=== PATIENT | female | born 1995 | race Caucasian/White ===

== ENCOUNTER 2023-12-11 02:25 | Emergency (ER) | payer BC, SELFPAY ==
[2023-12-11 02:30] VITALS: BP 140/84
--- NOTE | 2023-12-11 02:46 | ED.GENMED ---
History of Present Illness
General
Chief Complaint: Abdominal Symptoms
Source: patient
Exam Limitations: none
Time Seen by Provider: 12/11/23 02:37
Travel History
Have you had any contact with someone who has COVID-19?: No
Do you have any symptoms of coronavirus? Fever > 100 degrees, chills, cough, shortness of breath, sore throat, loss of taste or smell, muscle aches, or headache?: No
History of Present Illness
History of Present Illness:
See MDM
Past History
Past History
ED Past Medical History: None
ED Past Surgical History: None
Social History
Tobacco: Non-smoker
Alcohol: Occasional
Drug: None
Personal:
Living: with family
Employment: Employed
Family History
Family History: Other (Contributory)
Phy Exam
Physical Exam
Physical Exam:
See MDM
Course
Orders/Labs/Results
Orders:
Orders
12/11/23 02:45
US Abdomen Complete/Upper Urgent
Comment:
Reason For Exam: RUQ pain
12/11/23 02:52
Complete Blood Count/With Diff Urgent
Comprehensive Metabolic Panel Urgent
Lipase Urgent
Abnormal Lab Results
12/11/23
02:52
Chloride 108 H mmol/L
(98-107)
Calcium 10.7 H mg/dl
(8.4-10.2)
12/11/23 02:52
12/11/23 02:52
Vital Signs
Initial and Last Documented VS:
Initial Vital Signs
Temp Pulse Resp BP Pulse Ox
98.2 F 67 16 140/84 98
12/11/23 02:30 12/11/23 02:30 12/11/23 02:30 12/11/23 02:30 12/11/23 02:30
Last Documented Vital Signs
Temp Pulse Resp BP Pulse Ox
98.2 F 67 16 140/84 98
12/11/23 02:30 12/11/23 02:30 12/11/23 02:30 12/11/23 02:30 12/11/23 02:30
MDM/Problems Addressed
Differential Diagnosis Includes:
HPI and MDM Narrative:
28-year-old female presenting with right upper quadrant abdominal pain. Symptoms are worse with food intake. Patient was worried because she developed significant pain earlier tonight but symptoms are improving somewhat. She does have outpatient
ultrasound scheduled to rule out gallbladder pathology. She is 1 month uncomplicated vaginal delivery.
Physical exam
General: Well appearing and non-toxic
HEENT: protecting airway
Neck: appears supple
CV: No evidence of cyanosis
Resp: No accessory muscle use
Abd: Non-distended. Mild right upper quadrant tenderness without rebound
Extremities: No deformities
Neuro: alert
Psych: Normal affect
Skin: Intact
Problems Addressed including Acute and Chronic Conditions affecting care:
1. Right upper quadrant pain
Acuity: acute
Prognosis: stable
Details: given pain with food intake, will obtain gallbladder pathology
Updates
4 AM ultrasound consistent with multiple mobile gallstones. No evidence of acute calculus cholecystitis. Discussed the diagnosis of symptomatic cholelithiasis and follow-up with surgery
Differential Diagnosis (but not limited to): Symptomatic cholelithiasis, acute calculus cholecystitis
Testing considered: CT abdomen/pelvis
Drug therapy (if applicable): OTC meds, please see d/c instruction regarding Rx drugs
Amount and/or Complexity of Data Reviewed
Clinical info obtained from: Patient
External data reviewed: N/A
Labs I independently reviewed (but not limited to): LFTs within normal limit
Radiology: Ultrasound report reviewed
Pulse Ox: not hypoxic
EKG independently reviewed: N/A
Nematologist: N/A
Critical Care: N/A
Risk of Complication:
Social Determinants of health: Good social support
Discussed with other providers: N/A
Escalation of Care includes Admit/Obs: After being observed in the Emergency Department, pt stable for discharge.
Occasional wrong word or 'sound a like' substitutions may have occurred due to the inherent limitations of voice recognition software. Read the chart carefully and recognize, using context, where substitutions have occurred.
*Critical Care Note
Total Time (30-74mins, 75-104mins- exclusive of procedures): Not Applicable
ED Attending Note
-
Portions of this chart may have been created with voice recognition software.� Occasional wrong word or��sound alike� substitutions may have occurred due to the inherent limitations of voice recognition software.
Discharge Plan
Departure
Patient Disposition: Home (Routine Discharge)
Date of Disposition: 12/11/23
Time of Disposition: 04:03
Patient with high blood pressure during this ER visit?: Yes
Discharge Problem:
Symptomatic cholelithiasis
Instructions: Gallstones ED
Prescriptions:
No Action
levothyroxine 100 mcg Tablet
100 mcg PO ARANA
levothyroxine 50 mcg Tablet
50 mcg PO SUMOTUWETHFR
1 mg Tablet
1 tab PO DAILY
magnesium Tablet
1 tab PO DAILY
Vitamin D (with calcium)
4,000 units PO DAILY
Wellbutrin
PO BID
Referrals:
Kelly Rey CRNP [Family Provider] -
Babatunde Ferraro MD [Active] -
Activity Restrictions/Additional Instructions:
Please return for any worsening symptoms.
You may return at any time if you have further concerns.
Please follow up with your doctor at the first available appointment, preferably this week.
Please make an appointment to see the general surgeon.
Thank you for choosing [facility].
Interventions
Interventions:
*Risk Screen - Suicide Last Done: 12/11/23 02:45
*General Assessment Last Done: 12/11/23 02:30
*Neglect/Abuse Screening Last Done: 12/11/23 02:45
ED- Fall Risk Assessment Last Done: 12/11/23 02:45
*ED COVID-19 Vaccine History Last Done: 12/11/23 02:30
CQ-Ukxhbd-Vynueqxsuk Assessment Last Done: 12/11/23 02:45
Discharge Date and Time
Print Language: URDU
[2023-12-11 03:05] LABS: % Basophils 0.8 % (0-2); % Eosinophils 4.2 % (0-6); % Immature Granulocytes 0.3 % (0-0.5); % Lymphocytes 38.2 % (20.5-51.1); % Monocytes 6.7 % (1.7-9.3); % Neutrophils 49.8 % (42.2-75.2); Absolute Basophils 0.1 10^3/uL (0-0.2); Absolute Eosinophils 0.3 10^3/uL (0-0.7); Absolute Monocytes 0.5 10^3/uL (0.1-0.6); Mean Corp Hgb Conc. 35.7 g/dL (33.0-37.0); Mean Corpuscular Hgb 30.7 pg (27.0-31.0); Mean Corpuscular Volume 86.1 fL (81.0-99.0); Mean Platelet Volume 9.6 fL (7.4-10.4); Nucleated Red Blood Cells % 0 %; Platelet Count 183 10^3/uL (130-400); Red Blood Cell Count 4.88 10^6/uL (4.20-5.40); Red Cell Dist. Width 11.7 % (11.5-14.5); White Blood Cell Count 7.9 10^3/uL (4.8-10.8)
[2023-12-11 03:20] LABS: ALT (SGPT) 25 U/L (0-35); AST (SGOT) 24 U/L (14-36); Albumin 4.6 g/dl (3.5-5.0); Alkaline Phosphatase 84 U/L (38-126); Blood Urea Nitrogen 15 mg/dl (7-17); Calcium 10.7 mg/dl (8.4-10.2); Carbon Dioxide 24 mmol/L (22-30); Chloride 108 mmol/L (98-107); Glucose 95 mg/dl (70-99); Lipase 208 U/L (23-300); Potassium 4.1 mmol/L (3.5-5.1); Sodium 141 mmol/L (135-145); Total Bilirubin 0.5 mg/dl (0.2-1.3); Total Protein 7.3 g/dl (6.3-8.2); eGFR > 60.00
[2023-12-11 03:30] VITALS: BP 105/75
== END 2023-12-11 04:15 | disposition home or self-care (01) ==
LOC: EMR 02:25
PROVIDERS: EMERGENCY PHYSICIAN Student in an Organized Health Care Education/Training Program; FAMILY PHYSICIAN Nurse Practitioner Family
DX: K80.20 Calculus of gallbladder without cholecystitis without obstruction (principal); R03.0 Elevated blood-pressure reading, without diagnosis of hypertension
CPT/HCPCS: 99284; 76700; 80053; 83690; 85025

== ENCOUNTER 2024-01-12 06:21 | Day surgery (SDC) | payer BC, SELFPAY ==
[2024-01-12] VITALS (12 sets, daily range): BP systolic 82–125; BP diastolic 49–80; BMI 28.2
[2024-01-12] MEDS: NORMOSOL-R 1000 IV (10:55)
[2024-01-12] MEDS: TYLENOL 1000 MG PO (11:07)
--- NOTE | 2024-01-12 12:36 | W.SUR.PREOP ---
Pre-Operative Surgical Note
-
I have examined this patient prior to the performance of the scheduled procedure.
The patient's condition is unchanged from the time of the current History and
Physical and the patient is able to undergo the scheduled procedure.
--- NOTE | 2024-01-12 12:37 | W.IMMPOSTOP ---
Surgical Immed Post Op Note
-
Primary Surgeon: Joel Menendez MD
Assisting Surgeon: None
Pre-op Diagnosis: Biliary colic
Post-op Diagnosis: Same
Procedure Performed: Laparoscopic cholecystectomy with cholangiogram
Anesthesia Type: General
Specimen / Cultures: Gallbladder and contents
Estimated Blood Loss: 3 cc
Complications: None
Operative Findings: Fairly normal-appearing gallbladder though some adhesions to the infundibulum and duct taken down with electrocautery. A critical view of safety was obtained prior to a cholangiogram which demonstrated no distal filling defects.
2 small cholesterol gallstones were milked out of the cystic duct prior to our successful run. Duct ligated with titanium endoclips.
--- NOTE | 2024-01-12 12:38 | OR.RPT ---
Operative Report
Operative Report
Patient Name: Dai Vitale
: 1995
Date of Operation: 01/12/2024
Preoperative Diagnosis: Symptomatic Cholelithiasis
Postoperative Diagnosis: Same
Procedure(s):
Laparoscopic Cholecystectomy with Cholangiogram
Surgeon(s):
Dr. Menendez
Family Life Educator(s):
None
Anesthesia: General
Estimated Blood Loss: 3 cc
Urine Output: None
Drains/Lines/Implants: None
Specimens:
1. Gallbladder and contents
HPI/Surgical Indications:
This is a 28-year-old female who presents with abdominal pain. Exam, labs and imaging are consistent with symptomatic cholelithiasis. Risks/Benefits/Alternatives were discussed at length, and the patient agreed to proceed with surgery.
Findings:
The patient was noted to have some evidence of gallbladder inflammation noted by periduodenal adhesions to the infundibulum and cystic duct. A Critical View of Safety was obtained. Cholangiogram showed no filling defects in the biliary system with
the Left, Right Anterior, Right posterior hepatic ducts, CHD, cystic duct and CBD all identified. There was brisk flow of dye into the duodenum. 2 small cholesterol gallstones were milked out of the cystic duct prior to our successful run. Duct
ligated with titanium endoclips.
Procedure Description:
The patient was brought to the Operating Room and placed in the supine position. IV antibiotics were infused and sequential compression devices were confirmed to be on. Following uneventful induction of general endotracheal anesthesia, an
orogastric tube was placed. The abdomen was prepped and draped in the usual sterile fashion. The abdomen was entered using an infraumbilical open Shannon technique using a 12 mm trocar . Pneumoperitoneum to 15 mmHg pressure was obtained without
difficulty and we confirmed that no injury had occurred during our entry. The patient was positioned in reverse trendelenberg and rotated with the right side up slightly. Three (3) 5mm trocars were then placed along the right subcostal margin. A
locking grasping forceps was placed on the fundus of the gallbladder where it was then retracted cephalad and to the right. Using appropriate grasping instruments, the peritoneum overlying the triangle of Calot was incised. The cystic
duct/gallbladder junction was identified, dissected circumferentially. The cystic artery was identified medially and was dissected circumferentially. The artery was clipped and divided after a critical view was obtained. A clip was then placed on
the cystic duct/gallbladder junction and an intraoperative cholangiogram performed using fluoroscopy, which showed good flow of dye into the duodenum. Prior to a run, 2 small cholesterol gallstones were milked out of the cystic duct. There were no
intra- or extrahepatic bile duct filling defects. The biliary anatomy appeared normal. Following completion of the cholangiogram, the catheter was removed. Two clips were then placed proximally on the cystic duct and the duct divided. The
remaining soft tissue attachments of the gallbladder to the liver bed were then divided using electrocautery. There was no spillage of bile or stones. The gallbladder bed was inspected and excellent hemostasis was obtained. The gallbladder was
extracted through the 12 mm trocar site using an endocatch bag. The abdomen was again irrigated and excellent hemostasis was assured. All remaining trocars were then removed and the pneumoperitoneum was evacuated. The 12 mm trocar site was closed
using a figure of 8 of 0 PDS. All trocar sites were closed at the skin level using 4-0 Monocryl followed by Dermabond. Overall, the patient tolerated the procedure well and was taken to the Recovery Room postoperatively in stable condition.
I was the attending physician and performed the procedure with no assistance. I was present for all portions of the case
Joel Menendez MD
[2024-01-12] MEDS: SUBLIMAZE 50 MCG IV (13:27)
[2024-01-12] MEDS: MOTRIN 600 MG PO (14:25)
== END 2024-01-12 14:50 | disposition home or self-care (01) ==
LOC: SDS 06:21
PROVIDERS: ATTENDING PHYSICIAN Surgery
DX: K80.10 Calculus of gallbladder with chronic cholecystitis without obstruction (principal)
CPT/HCPCS: 47563; 88304; 74300; 76000

== ENCOUNTER 2024-01-20 13:21 | Emergency (ER) | payer BC, SELFPAY ==
[2024-01-20 13:26] VITALS: BP 153/80
--- NOTE | 2024-01-20 16:23 | ED.GENMED ---
History of Present Illness
General
Chief Complaint: Post Operative Problem(s)
Time Seen by Provider: 01/20/24 16:10
History of Present Illness
History of Present Illness:
Patient is a 28-year-old female presenting to the ED with right upper quadrant pain. She states that she had a gallbladder surgery last week. She has been feeling a constant dull pain in the area pains radiating to the back and across the abdomen.
She reports no fever, no vomiting, no diarrhea, no sick contacts, no urinary frequency or pain. She does report ongoing nausea.
Past History
Past History
ED Past Medical History: None
ED Past Surgical History: None
Social History
Tobacco: Non-smoker
Alcohol: Occasional
Drug: None
Personal:
Living: with family
Employment: Employed
Family History
Family History: Other (Contributory)
Review of Systems
Review of Systems
Constitutional: Reports no symptoms
EENT: Reports no symptoms
Respiratory: Reports no symptoms
Cardiac: Reports no symptoms
ABD/GI: Reports abdominal pain and nausea
: Reports no symptoms
Musculoskeletal: Reports no symptoms
Skin: Reports no symptoms and other (clean surgical incisions without discharge)
Psychiatric: Reports no symptoms
Phy Exam
General Physical Exam
General Presentation: mild distress
General age: appears stated age
General Skin: warm and dry
General Habitus: normal
General Mental: alert
General Hydration: appears well hydrated
Cardiovascular Exam
Cardiovascular Exam: regular rate/rhythm, no edema, no gallop, no JVD, no murmur, normal peripheral pulses, bradycardia and diastolic murmur
Pulmonary Exam
Pulmonary Exam: lungs clear, no respiratory distress, no rales, chest non tender, no crackles, no rhonchi, no stridor, no wheezing and no cough
Gastrointestinal Exam
Gastrointestinal Exam: normal bowel sounds, soft, no pulsatile mass, non distended and tender
Musculoskeletal Exam
Musculoskeletal Exam: full ROM
Skin Exam
Skin Exam: normal color and warm/dry
Psychiatric Exam
Psychiatric Exam: normal mood/affect
Course
Orders/Labs/Results
Orders:
Orders
01/20/24 16:35
Ketorolac [Toradol] 15 mg IV NOW STA
01/20/24 16:39
CT Abd/pelvis W Iv Cont Urgent
Comment:
Reason For Exam: abdominal pain
0.9% Sodium Chloride 1000 ml [Nss] 1,000 ml IV BOLUS
01/20/24 16:52
CMP [Comprehensive Metabolic Panel] Urgent
Complete Blood Count/With Diff Urgent
Lipase Urgent
Comment: ADD ON
01/20/24 20:59
Add On- LAB Urgent
Tests Added?: lipase
Abnormal Lab Results
01/20/24
16:52
Absolute Monos (auto) 0.7 H 10^3/uL
(0.1-0.6)
Calcium 10.8 H mg/dl
(8.4-10.2)
01/20/24 16:52
01/20/24 16:52
Vital Signs
Initial and Last Documented VS:
Initial Vital Signs
Temp Pulse Resp BP Pulse Ox
98.3 F 54 18 153/80 97
01/20/24 13:26 01/20/24 13:26 01/20/24 13:26 01/20/24 13:26 01/20/24 13:26
Last Documented Vital Signs
Temp Pulse Resp BP Pulse Ox
98.2 F 67 18 128/78 98
01/20/24 21:11 01/20/24 21:11 01/20/24 21:11 01/20/24 21:11 01/20/24 21:11
MDM/Problems Addressed
Differential Diagnosis Includes:
bile leak
MDM/Problems Addressed:
Patient is a 28-year-old female presenting to the ED with right upper quadrant pain after cholecystectomy. Patient is stable and was given IV fluids, Toradol in ED. CT abdomen pelvis shows small amount of fluid in the gallbladder area. All other
organs are normal. Patient tolerated food orally. Surgery was consulted and patient was seen in the ED. Recommendations made to follow-up with surgery outpatient.
Chronic conditions affecting care:
NA
Acute Exacerbation and/or Progression of Chronic Illness:
NA
*Critical Care Note
Total Time (30-74mins, 75-104mins- exclusive of procedures): Not Applicable
ED Attending Note
-
Portions of this chart may have been created with voice recognition software.� Occasional wrong word or��sound alike� substitutions may have occurred due to the inherent limitations of voice recognition software.
Discharge Plan
Departure
Patient Disposition: Home (Routine Discharge)
Date of Disposition: 01/20/24
Time of Disposition: 20:59
Patient with high blood pressure during this ER visit?: No
Condition: Good
Discharge Problem:
Post surgical complication
Instructions: Postoperative Pain (DC)
Prescriptions:
No Action
levothyroxine 100 mcg Tablet
100 mcg PO ARANA
levothyroxine 50 mcg Tablet
50 mcg PO MOTUWETHFR
bfmzwjlc-[id number]-FA 1 mg Tablet
1 tab PO DAILY
magnesium Tablet
1 tab PO DAILY
bupropion HCl [Wellbutrin SR] 150 mg Tablet Sustained-Release 12 Hr
150 mg PO BID
cholecalciferol (vitamin D3) [Vitamin D3] 125 mcg (5,000 unit) Tablet
125 mcg PO DAILY
acetaminophen 325 mg tablet
650 mg PO Q6HPRN PRN (Reason: mild pain) Qty: 14 0RF
Patient Comments:
2 week agoper patient.
tramadol 50 mg tablet
25 mg PO Q6HPRN PRN (Reason: severe pain/breakthrough pain) Qty: 8 0RF
ibuprofen 600 mg tablet
600 mg PO Q6H PRN (Reason: pain) Qty: 14 0RF
Patient Comments:
01/07/24
Referrals:
Kelly Rey CRNP [Family Provider] -
Joel Menendez MD [Active] - Call in 1-3 days for appt
Interventions
Interventions:
*Risk Screen - Suicide Last Done: 01/20/24 16:30
*General Assessment Last Done: 01/20/24 16:30
*Neglect/Abuse Screening Last Done: 01/20/24 16:30
ED- Fall Risk Assessment Last Done: 01/20/24 21:11
*ED COVID-19 Vaccine History Last Done: 01/20/24 21:11
*Nursing Disposition Last Done: 01/20/24 21:11
ED-Skin Assessment Last Done: 01/20/24 16:30
Discharge Date and Time
Discharge Date/Time: 01/20/24 21:14
Print Language: [place]LAND[place]
[2024-01-20 16:30] VITALS: BP 124/79
[2024-01-20] MEDS: NSS 1000 IV (16:54)
[2024-01-20] MEDS: TORADOL 15 MG IV (16:55)
[2024-01-20 17:04] LABS: % Basophils 0.6 % (0-2); % Eosinophils 1.6 % (0-6); % Immature Granulocytes 0.4 % (0-0.5); % Lymphocytes 27.9 % (20.5-51.1); % Monocytes 6.8 % (1.7-9.3); % Neutrophils 62.7 % (42.2-75.2); Absolute Basophils 0.1 10^3/uL (0-0.2); Absolute Eosinophils 0.2 10^3/uL (0-0.7); Absolute Lymphocytes 2.9 10^3/uL (1.2-3.4); Absolute Monocytes 0.7 10^3/uL (0.1-0.6); Absolute Neutrophils 6.5 10^3/uL (1.4-6.5); Hematocrit 40.4 % (37.0-47.0); Hemoglobin 14.3 g/dL (12.0-16.0); Mean Corp Hgb Conc. 35.4 g/dL (33.0-37.0); Mean Corpuscular Hgb 30.4 pg (27.0-31.0); Mean Platelet Volume 9.4 fL (7.4-10.4); Nucleated Red Blood Cells % 0 %; Platelet Count 228 10^3/uL (130-400); Red Cell Dist. Width 12.2 % (11.5-14.5); White Blood Cell Count 10.3 10^3/uL (4.8-10.8)
[2024-01-20 17:27] LABS: ALT (SGPT) 34 U/L (0-35); AST (SGOT) 28 U/L (14-36); Alkaline Phosphatase 79 U/L (38-126); Blood Urea Nitrogen 15 mg/dl (7-17); Calcium 10.8 mg/dl (8.4-10.2); Carbon Dioxide 24 mmol/L (22-30); Chloride 105 mmol/L (98-107); Glucose 83 mg/dl (70-99); Potassium 4.2 mmol/L (3.5-5.1); Sodium 140 mmol/L (135-145); Total Bilirubin 0.7 mg/dl (0.2-1.3); eGFR > 60.00
[2024-01-20 18:00] VITALS: BP 121/79
[2024-01-20 21:11] VITALS: BP 128/78
--- NOTE | 2024-01-20 21:26 | CON.GS ---
Consultation
-
Date/Time Consultation Requested: 01/20/2024 8 PM
Date/Time Consultation Performed: 01/20/2024 9 PM
Requesting Provider: Emergency department
Performing Provider: Dr. Menendez
Reason for Consultation: Right upper quadrant pain, shortness of breath
Medical History
-
Chief Complaint: Right upper quadrant pain shortness of breath
History of Present Illness:
This is a 28-year-old female status post laparoscopic cholecystectomy 1 week ago that was uneventful. The cholangiogram performed at the time was also unremarkable. She was discharged home the same day and was doing well up until this past Thursday
when she started having right upper quadrant pain particularly at night and in the morning. It felt like spasming that was severe and the only relenting maneuver was standing up and leaning forward. She also notes some 'shortness of breath' like
she cannot catch her breath but there is no pleuritic chest pain associated with this.
Past Medical History
Past Medical History: Reviewed & Noncontributory
Past Surgical History: Cholecystectomy
Social History
Tobacco: Non-Smoker
Drug: None
Personal:
Living: With Family
Family History
Family History: Reviewed & Not Pertinent
Allergies / Home Medications
Allergy/AdvReac Type Severity Reaction Status Date / Time
apple Allergy Anaphylaxis, Verified 01/20/24 13:27
swelling,
hives,
birch Allergy Anaphylaxis, Verified 01/20/24 13:27
swelling,
hives,
bowens Allergy Anaphylaxis, Verified 01/20/24 13:27
swelling,
hives,
peach Allergy Anaphylaxis, Verified 01/20/24 13:27
swelling,
hives,
pear Allergy Anaphylaxis, Verified 01/20/24 13:27
swelling,
hives,
walnut Allergy Anaphylaxis, Verified 01/20/24 13:27
swelling,
hives,
�Medication �Instructions �Recorded �Confirmed �Type
levothyroxine 100 mcg tablet 100 mcg PO ARANA 12/11/23 01/12/24 History
levothyroxine 50 mcg tablet 50 mcg PO MOTUWETHFR 12/11/23 01/12/24 History
magnesium 1 tab PO DAILY 12/11/23 01/12/24 History
pecdlnce-gsn-Ub-FA 1 mg 1 tab PO DAILY 12/11/23 01/12/24 History
tablet
bupropion HCl 150 mg tablet,12 hr 150 mg PO BID 01/08/24 01/12/24 History
sustained-release (Wellbutrin SR)
cholecalciferol (vitamin D3) 125 125 mcg PO DAILY 01/08/24 01/12/24 History
mcg (5,000 unit) tablet (Vitamin
D3)
acetaminophen 325 mg tablet 650 mg (2 x 325 mg) PO Q6HPRN PRN 01/12/24 Rx
mild pain #14 tabs
ibuprofen 600 mg tablet 600 mg PO Q6H PRN pain #14 tabs 01/12/24 Rx
tramadol 50 mg tablet 25 mg (1/2 x 50 mg) PO Q6HPRN PRN 01/12/24 Rx
severe pain/breakthrough pain #8
tabs
Review of Systems
-
All other systems: Negative unless noted
A 10 point review of systems was completed, and was negative except as per HPI.
Physical Exam
Vital Signs
Temp Pulse Resp BP Pulse Ox
98.2 F 67 18 128/78 98
01/20/24 21:11 01/20/24 21:11 01/20/24 21:11 01/20/24 21:11 01/20/24 21:11
Lab Results
01/20/24 16:52
01/20/24 16:52
WBC 10.3 10^3/uL (4.8-10.8) 01/20/24 16:52
Hgb 14.3 g/dL (12.0-16.0) 01/20/24 16:52
Hct 40.4 % (37.0-47.0) 01/20/24 16:52
Plt Count 228 10^3/uL (130-400) 01/20/24 16:52
Abs Immat Gran (auto) 0.0 10^3/uL (0-0.05) 01/20/24 16:52
Neutrophils % 62.7 % (42.2-75.2) 01/20/24 16:52
Physical Exam
General: Well Developed
HEENT: Normocephalic
Respiratory: Non Labored Respirations
GI: Soft, Non Tender, Non Distended and Incisions (Clean dry and intact)
Data Reviewed
-
CT Scan: Image Personally Visualized and interpreted, Discussed with Physician and Discussed with Patient
Labs: Labs Reviewed by me, Discussed with Physician and Discussed with Patient
Total Time Spent with Patient (in minutes): 30
Assessment / Plan
-
This is a 28-year-old female postoperative day the 7 from an uneventful laparoscopic cholecystectomy for biliary colic. Path consistent with chronic cholecystitis. She presents with right upper quadrant spasming pain as well as some difficulty
breathing of unclear etiology. Her lab work is completely unremarkable no leukocytosis and LFTs are normal.
A lipase is pending. Furthermore a CT scan demonstrates only a small amount of fluid in the surgical bed which is fairly normal for 1 week postop. While we could consider a biloma, typically this would be constant pain and generally would have
some abnormalities on her LFTs. I did offer her the option to come in for potential HIDA scan but I explained that I felt this was a low diagnostic value. My leading thought here would be sphincter of Oddi dysfunction but as she does not have
elevated LFTs or dilated bile ducts this would really be limited to type III sphincter of Oddi dysfunction. I will discuss this with my gastroenterology colleagues tomorrow to discuss options and starting a calcium channel nelly. For now, the
patient is relieved that there is no significant pathology and she feels comfortable going home.
Okay to DC home, will follow-up with the patient as an outpatient and continue workup for sphincter of Oddi dysfunction.
[2024-01-20 21:31] LABS: Lipase 150 U/L (23-300)
== END 2024-01-20 21:14 | disposition home or self-care (01) ==
LOC: EMR 13:21
PROVIDERS: Emergency Medicine; EMERGENCY PHYSICIAN Emergency Medicine; FAMILY PHYSICIAN Nurse Practitioner Family
DX: T88.9XXA Complication of surgical and medical care, unspecified, initial encounter (principal); Y83.8 Other surgical procedures as the cause of abnormal reaction of the patient, or of later complication, without mention of misadventure at the time of the procedure
CPT/HCPCS: 99285; 96374; 96361; 74177; 80053; 83690; 85025; Q9967

== ENCOUNTER → 2024-02-16 08:10 | Outpatient (REF) | payer BC, SELFPAY | LOC: RAD 08:10 | PROVIDERS: ATTENDING PHYSICIAN Surgery; FAMILY PHYSICIAN Nurse Practitioner Family | DX: Z90.49 Acquired absence of other specified parts of digestive tract (principal) | CPT/HCPCS: 78227; A9537; J2805 ==

== ENCOUNTER 2024-08-15 06:18 | Day surgery (SDC) | payer BC, SELFPAY | END 2024-08-15 14:28 | disposition home or self-care (01) | LOC: GI 06:18 | PROVIDERS: ATTENDING PHYSICIAN Internal Medicine | DX: K29.60 Other gastritis without bleeding (principal); K29.70 Gastritis, unspecified, without bleeding; K31.89 Other diseases of stomach and duodenum; R10.13 Epigastric pain | CPT/HCPCS: 43239; 88305; 88342 ==

== ENCOUNTER 2025-06-14 14:19 | Emergency (ER) | payer BC, SELFPAY ==
[2025-06-14 14:26] VITALS: BP 136/84
--- NOTE | 2025-06-14 15:27 | ED.GENMED ---
History of Present Illness
General
Chief Complaint: Musculo-Skeletal Complaint
Time Seen by Provider: 06/14/25 14:54
History of Present Illness
History of Present Illness:
Dai is a 29-year-old female with past medical history of asthma, gestational hypertension, hypothyroidism who presents complaining of right-sided neck pain that radiates into her arm since Thursday. 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
at work when she developed pain while mopping. Pain has been worse with activity. Has trialed utxb-tkk-bfgaxsl medications such as Tylenol ibuprofen and naproxen with some relief.
Past History
Past History
ED Past Medical History: None
ED Past Surgical History: None
Social History
Tobacco: Non-smoker
Alcohol: Occasional
Drug: None
Personal:
Living: with family
Employment: Employed
Family History
Family History: Other (Contributory)
Phy Exam
General Physical Exam
General Presentation: well appearing and no apparent distress
General Skin: warm and dry
General Habitus: normal
General Mental: alert
General Hydration: appears well hydrated
ENT Exam
ENT Exam: EOMI, pharynx normal, neck supple and normocephalic
Eye Exam
Eye Exam: PERRL, cornea clear and conjunctiva normal
Cardiovascular Exam
Cardiovascular Exam: regular rate/rhythm, no edema, no murmur and normal peripheral pulses
Pulmonary Exam
Pulmonary Exam: lungs clear, no respiratory distress, no rales, no crackles, no rhonchi, no stridor, no wheezing and no cough
Gastrointestinal Exam
Gastrointestinal Exam: normal bowel sounds, non tender, soft, no organomegaly, no pulsatile mass and non distended
Neurological Exam
Neurological Exam: alert, oriented x3, no motor deficits and speech normal
Musculoskeletal Exam
Musculoskeletal Exam: full ROM, no edema and other (Point tenderness over right trapezius muscle. No midline cervical tenderness. Able to range neck but reports pain in right trapezius)
Skin Exam
Skin Exam: normal color, warm/dry, no rash and no petechia
Psychiatric Exam
Psychiatric Exam: normal mood/affect
Course
Vital Signs
Initial and Last Documented VS:
Initial Vital Signs
Temp Pulse Resp BP Pulse Ox
36.8 C 65 16 136/84 98
06/14/25 14:26 06/14/25 14:26 06/14/25 14:26 06/14/25 14:26 06/14/25 14:26
Last Documented Vital Signs
Temp Pulse Resp BP Pulse Ox
36.8 C 65 16 136/84 98
06/14/25 14:26 06/14/25 14:26 06/14/25 14:26 06/14/25 14:26 06/14/25 14:26
MDM/Problems Addressed
Differential Diagnosis Includes:
History and exam consistent with muscle strain. Given that she has no midline tenderness or traumatic mechanism no imaging is indicated at this time. I offered patient Flexeril here in the emergency department but she prefers to not take it as she
has to drive home. Reassurance provided that this is limited and will improve with rest. Prescription for Flexeril sent to the pharmacy. Discussed continued use of ohmo-lco-mgkuszk medications including NSAIDs to help decrease any inflammation,
lidocaine patches, Tylenol. Return precautions discussed. She will follow-up with her primary care physician.
*Pulse Oximetry
SaO2: 98
Oxygen Mode of Delivery: Room air
Patient hypoxic: no
*Critical Care Note
Total Time (30-74mins, 75-104mins- exclusive of procedures): Not Applicable
ED Attending Note
-
Portions of this chart may have been created with voice recognition software.� Occasional wrong word or��sound alike� substitutions may have occurred due to the inherent limitations of voice recognition software.
Discharge Plan
Departure
Patient Disposition: Home (Routine Discharge)
Date of Disposition: 06/14/25
Time of Disposition: 15:19
Patient with high blood pressure during this ER visit?: No
Discharge Problem:
Cervical strain
Prescriptions:
New
cyclobenzaprine 10 mg tablet
10 mg PO TIDPRN PRN (Reason: muscle spasm) Qty: 13 0RF
No Action
levothyroxine 100 mcg Tablet
100 mcg PO ARANA
levothyroxine 50 mcg Tablet
50 mcg PO MOTUWETHFR
wndbidke-xub-Xr-FA 1 mg Tablet
1 tab PO DAILY
magnesium Tablet
1 tab PO DAILY
bupropion HCl [Wellbutrin SR] 150 mg Tablet Sustained-Release 12 Hr
150 mg PO BID
cholecalciferol (vitamin D3) [Vitamin D3] 125 mcg (5,000 unit) Tablet
125 mcg PO DAILY
acetaminophen 325 mg tablet
650 mg PO Q6HPRN PRN (Reason: mild pain) Qty: 14 0RF
Patient Comments:
2 week agoper patient.
tramadol 50 mg tablet
25 mg PO Q6HPRN PRN (Reason: severe pain/breakthrough pain) Qty: 8 0RF
ibuprofen 600 mg tablet
600 mg PO Q6H PRN (Reason: pain) Qty: 14 0RF
Patient Comments:
01/07/24
Referrals:
Kelly Rey CRNP [Family Provider]
Activity Restrictions/Additional Instructions:
You may use ice or heat for pain. Continue to take Tylenol or ibuprofen. A prescription for Flexeril has been sent to your pharmacy. Do not drive after taking this medication as it can make you sleepy.Follow-up with your primary care doctor if
pain continues.
Interventions
Interventions:
*General Assessment Last Done: 06/14/25 14:26
*Neglect/Abuse Screening Last Done: 06/14/25 14:26
*ED COVID-19 Vaccine History Last Done: 06/14/25 14:26
*ED Influenza Vaccine History Last Done: 06/14/25 14:26
*Risk Screen - Suicide (C-SSRS) Last Done: 06/14/25 14:26
Discharge Date and Time
Print Language: ARGENTINE
[2025-06-14 15:33] VITALS: BP 132/76
== END 2025-06-14 15:32 | disposition home or self-care (01) ==
LOC: EMR 14:19
PROVIDERS: EMERGENCY PHYSICIAN Emergency Medicine; FAMILY PHYSICIAN Nurse Practitioner Family
DX: S16.1XXA Strain of muscle, fascia and tendon at neck level, initial encounter (principal); X50.3XXA Overexertion from repetitive movements, initial encounter; Y93.E5 Activity, floor mopping and cleaning; Y99.0 Civilian activity done for income or pay; J45.909 Unspecified asthma, uncomplicated; E03.9 Hypothyroidism, unspecified
CPT/HCPCS: 99282